=== PATIENT | female | born 1995 | race American Indian/Alaskan Native ===

== ENCOUNTER 2016-10-26 18:18 | Emergency (ER) | payer SELFPAY ==
[2016-10-26] MEDS ORDERED: Sodium Chloride 0.9% 1,000 ML IV STA (18:40)
--- NOTE | 2016-10-26 18:45 | ED PDOC ---
Arrival/HPI - General Chief Complaint: Abdominal Pain Time Seen by Provider: 10/26/16 18:25 Historian: Patient - History of Present Illness Narrative History of Present Illness (Text): The patient is a 20yo female, , presents to the emergency department for evaluation of suprapubic pain with associated bilateral lower back pain. The patient reports her symptoms have been persistent for the past couple months; additionally reports she had had irregular menstrual cycles and states her LMP ended about a week ago. Patient states she took a home test 2 weeks ago which resulted positive. She denies any urinary symptoms, nausea, vomiting, diarrhea, fever, chills, vaginal bleeding or discharge. The patient states she has had decreased appetite. She denies nay other medical complaints. Of note, pt reports her first was normal term; pt reports she had blood pressure problems during the . PCP: None OBGYN: Dr. Sandy Merino at [facility] Time/Duration: > month (3) Past Medical History - Provider Review Nursing Documentation Reviewed: Yes - Past History Past History: No Previous - Infectious Disease Hx of Infectious Diseases: None - Past Medical History Past Medical History: No Previous - Psychiatric Hx Substance Use: No - Anesthesia Hx Anesthesia: Yes Hx Anesthesia Reactions: No Family/Social History - Physician Review Nursing Documentation Reviewed: Yes Family/Social History: Unknown Family HX Smoking Status: Never Smoked Hx Alcohol Use: No Hx Substance Use: No Allergies/Home Meds Allergies/Adverse Reactions: Allergies No Known Allergies Allergy (Verified 10/26/16 18:20) Home Medications: Home Meds Medication Instructions Recorded Confirmed No Known Home Med 10/26/16 10/26/16 Review of Systems - Physician Review All systems were reviewed & negative as marked: Yes - Review of Systems Gastrointestinal: Other (Suprapubic pain) Genitourinary Female: Normal. absent: Dysuria, Frequency, Hematuria, Vaginal Bleeding, Vaginal Discharge Musculoskeletal: Back Pain (b/l lower back pain ) Physical Exam Vital Signs Pulse Resp BP Pulse Ox 10/26/16 20:26 92 H 18 123/87 100 10/26/16 18:23 87 18 122/81 100 Temperature: Afebrile Blood Pressure: Normal Pulse: Regular Respiratory Rate: Normal Appearance: Positive for: Well-Appearing, Non-Toxic, Comfortable Pain Distress: None Mental Status: Positive for: Alert and Oriented X 3 - Systems Exam Head: Present: Atraumatic, Normocephalic Mouth: Present: Moist Mucous Membranes Respiratory/Chest: Present: Clear to Auscultation, Good Air Exchange. No: Respiratory Distress, Accessory Muscle Use Cardiovascular: Present: Regular Rate and Rhythm, Normal S1, S2. No: Murmurs Abdomen: Present: Tenderness (mild suprapubic tenderness to palpation), Normal Bowel Sounds. No: Distention, Peritoneal Signs Back: Present: Normal Inspection Lower Extremity: Present: Normal Inspection. No: Edema Neurological: Present: GCS=15, CN II-XII Intact, Speech Normal Skin: Present: Warm, Dry, Normal Color. No: Rashes Psychiatric: Present: Alert, Oriented x 3, Normal Insight, Normal Concentration Medical Decision Making ED Course and Treatment: Impression: Suprapubic pain in setting of Differential Diagnosis included but are not limited to: r/o UTI, complications in Plan: -- Labs -- IV Fluids -- US Transvaginal -- Reassess and disposition Progress Notes: 10/26/16 20:16 US Transvaginal Impression: IMPRESSION: 21 week 3 day single cephalic fetus with estimated date of delivery 03/05/17 - Lab Interpretations Lab Results: 10/26/16 19:00 10/26/16 19:00 Lab Results 10/26/16 19:00: Sodium 138, Potassium 3.7, Chloride 105, Carbon Dioxide 26, Anion Gap 11, BUN 8, Creatinine 0.6, Est GFR ( Amer) > 60, Est GFR (Non- Af Amer) > 60, Random Glucose 75, Calcium 9.0, Total Bilirubin 0.3, AST 19, ALT 22, Alkaline Phosphatase 79, Total Protein 7.5, Albumin 3.6, Globulin 4.0, Albumin/Globulin Ratio 0.9 L, Lipase 32 10/26/16 19:00: Urine Color Yellow, Urine Appearance Sl cloudy, Urine pH 6.5, Ur Specific [place] 1.025, Urine Protein 30 H, Urine Glucose (UA) Negative, Urine Ketones Trace H, Urine Blood Negative, Urine Nitrate Negative, Urine Bilirubin Negative, Urine Urobilinogen 1.0 H, Ur Leukocyte Esterase Negative, Urine RBC 0 - 2, Urine WBC 0 - 2, Ur Epithelial Cells Many, Urine Bacteria Many 10/26/16 19:00: WBC 8.5, RBC 3.84, Hgb 11.3 L, Hct 33.7 L, MCV 87.8, MCH 29.4, MCHC 33.5, RDW 13.1, Plt Count 268, MPV 10.3, Gran % 71.9 H, Lymph % (Auto) 18.9 L, [place] % (Auto) 8.1 H, Eos % (Auto) 0.9 L, Baso % (Auto) 0.2, Gran # 6.09 , Lymph # 1.6, [place] # 0.7 H, Eos # 0.1, Baso # 0.02 - RAD Interpretation Radiology Orders: 10/26/16 18:41 OB , LIMITED [US] Stat - Medication Orders Current Medication Orders: Discontinued Medications Sodium Chloride (Sodium Chloride 0.9%) 1,000 mls @ 1,000 mls/hr IV .Q1H STA Stop: 10/26/16 19:39 Last Admin: 10/26/16 19:21 Dose: 1,000 mls/hr - Scribe Statement The provider has reviewed the documentation as recorded by the Real Wan Provider Scribe Attestation: All medical record entries made by the Shanonibe were at my direction and personally dictated by me. I have reviewed the chart and agree that the record accurately reflects my personal performance of the history, physical exam, medical decision making, and the department course for this patient. I have also personally directed, reviewed, and agree with the discharge instructions and disposition. Disposition/Present on Arrival - Present on Arrival Any Indicators Present on Arrival: No History of DVT/PE: No History of Uncontrolled Diabetes: No Urinary Catheter: No History of Decub. Ulcer: No History Surgical Site Infection Following: None - Disposition Have Diagnosis and Disposition been Completed?: Yes Diagnosis: and not yet delivered in second trimester Disposition: HOME/ ROUTINE Disposition Time: 20:15 Condition: GOOD Discharge Instructions (ExitCare): at 19 to 22 Weeks (ED) Additional Instructions: Thank you for letting us take care of you today. Your provider was Dr. Gilbert. You were treated for abdominal pain during . The emergency medical care you received today was directed at your acute symptoms. If you were prescribed any medication, please fill it and take as directed. It may take several days for your symptoms to resolve. Return to the Emergency Department if your symptoms worsen, do not improve, or if you have any other problems. Please contact your doctor or call one of the physicians/clinics you have been referred to that are listed on the Patient Visit Information form that is included in your discharge packet. Bring any paperwork you were given at discharge with you along with any medications you are taking to your follow up visit. Our treatment cannot replace ongoing medical care by a primary care provider (PCP) outside of the emergency department. Thank you for allowing the [facility] team to be part of your care today. Start taking vitamins and follow up with your [facility] doctor in 2 days for further evaluation and care. Referrals: PCP,NO [Primary Care Provider] - Follow up with primary
[2016-10-26 19:13] LABS: BASO # 0.02 K/mm3 (0.0-2.0); BASO % 0.2 % (0.0-3.0); EOS # 0.1 (0.0-0.7); EOS % 0.9 % (1.5-5.0); GRAN # 6.09 (1.4-6.5); GRAN % 71.9 % (50.0-68.0); HEMOGLOBIN 11.3 gm/dL (12.0-16.0); LYMPH # 1.6 (1.2-3.4); LYMPH % 18.9 % (22.0-35.0); MEAN CELL VOLUME 87.8 fL (80.0-105.0); MEAN CORPUSCULAR HEMOGLOBIN 29.4 pg (25.0-35.0); MEAN CORPUSCULAR HGB CONC 33.5 g/dl (31.0-37.0); MEAN PLATELET VOLUME 10.3 fl (7.0-11.0); MONO # 0.7 (0.1-0.6); MONO % 8.1 % (1.0-6.0); PLATELET COUNT 268 10^3/uL (120.0-450.0); RBC 3.84 10^6/uL (3.5-6.1); RED CELL DISTRIBUTION WIDTH 13.1 % (11.5-14.5); WHITE BLOOD COUNT 8.5 10^3/ul (4.5-11.0)
[2016-10-26 19:16] LABS: PH,URINE 6.5 (4.7-8.0); URINE BILIRUBIN NEGATIVE (NEGATIVE); URINE BLOOD NEGATIVE (NEGATIVE); URINE GLUCOSE (UA) NEGATIVE (NEGATIVE); URINE LEUKOCYTE ESTERASE NEGATIVE Leu/uL (NEGATIVE); URINE NITRATE NEGATIVE (NEGATIVE); URINE PROTEIN 30 mg/dL (<30 mg/dL)
[2016-10-26 19:23] LABS: ALB/GLOB RATIO 0.9 (1.1-1.8); ALBUMIN 3.6 g/dL (3.0-4.8); ALT/SGPT 22 U/L (7-56); AST/SGOT 19 U/L (15-39); BLOOD UREA NITROGEN 8 mg/dL (7-21); GFR AFRICAN-AMERICAN > 60; GFR NON-AFRICAN AMERICAN > 60; LIPASE 32 U/L (23-300)
[2016-10-26 19:30] LABS: URINE APPEARANCE SL CLOUDY (CLEAR); URINE COLOR YELLOW (YELLOW)
[2016-10-26 19:31] LABS: URINE BACTERIA MANY (NEG); URINE EPITHELIAL CELLS MANY /hpf (0-5); URINE RBC 0 - 2 /hpf (0-2); URINE WBC 0 - 2 /hpf (0-6)
[2016-10-27 12:01] VITALS: BP 123/87; PULSE 92; RESP 18; O2SAT 100; BMI 29.0
--- NOTE | 2016-10-27 12:12 | US ---
Indication: Suprapubic tenderness OB , limited ultrasound Comparison: None available Technique: Real-time ultrasound was performed through the pelvis. Findings: There is a single living fetus in cephalic presentation. Anterior placenta. The placenta is not previa. There are no adnexal masses or cysts evident. Measurements and calculations: Fetus has a composite sonographic age of 21 weeks 3 days. This calculation is based on the biparietal diameter, head circumference, abdominal circumference, and femur length. Amniotic fluid measures 12.76 cm. Estimated heart rate 159.9 beats per min. Impression: Single living fetus with a composite sonographic age of 21 weeks 3 days. Estimated heart rate 159.9 beats per min. The study was performed for the emergent evaluation of suprapubic tenderness, and the whole anatomic survey of the fetus was not performed. This should be performed on an outpatient elective basis as clinically warranted. Preliminary impression was provided by virtual radiologic.
== END 2016-10-26 20:42 | disposition home or self-care (01) ==
LOC: MERGE 18:18 → ED 18:18
DX: O26.892 Other specified pregnancy related conditions, second trimester (principal); Z3A.21 21 weeks gestation of pregnancy
CPT/HCPCS: 76815; 80053; 81001; 83690; 84702; 85025; 87086; 99284; J7040

== ENCOUNTER 2017-01-04 11:23 | Emergency (ER) | payer MEDICAID, OTHER ==
[2017-01-04 12:14] VITALS: RESP 18; TEMP 98.8; O2SAT 99; BMI 31.4
--- NOTE | 2017-01-04 12:17 | ED PDOC ---
Arrival/HPI - General Chief Complaint: Abdominal Pain Time Seen by Provider: 01/04/17 12:09 Historian: Patient, Parent (Mother) - History of Present Illness Narrative History of Present Illness (Text): 01/04/17 12:10 A 21 year old female, , presents to the emergency department with 2- day duration lower abdominal discomfort and 1 week decreased movement of the fetus. She describes the abdominal discomfort as cramping and intermittent. She states that she has been taking vitamins. The patient denies fevers, chills, nausea, vomiting, diarrhea, headache, dizziness, chest pain, shortness of breath , vaginal bleeding, or any other complaint. MICROBIOLOGY DIRECTOR: Dr. Gregg Alcaraz Time/Duration: 1 week Symptom Onset: Sudden Symptom Course: Unchanged Activities at Onset: Rest, Light Context: Home Past Medical History - Provider Review Nursing Documentation Reviewed: Yes - Past History Past History: No Previous - Infectious Disease Hx of Infectious Diseases: None - Tetanus Immunization Tetanus Immunization: Unknown - Past Medical History Past Medical History: No Previous - Cardiac Hx Hypertension: Yes - Psychiatric Hx Substance Use: No - Anesthesia Hx Anesthesia: Yes Hx Anesthesia Reactions: No Family/Social History - Physician Review Nursing Documentation Reviewed: Yes Family/Social History: No Known Family HX Smoking Status: Never Smoked Hx Alcohol Use: No Hx Substance Use: No Allergies/Home Meds Allergies/Adverse Reactions: Allergies No Known Allergies Allergy (Verified 04/13/15 16:09) Home Medications: Home Meds Medication Instructions Recorded Confirmed Vit 75/Iron/Folic/Om3 1 tab PO DAILY 01/04/17 01/04/17 [One A Day Dha Pack] Review of Systems - Physician Review All systems were reviewed & negative as marked: Yes - Review of Systems Constitutional: absent: Fevers, Night Sweats ENT: absent: Sore Throat Respiratory: absent: SOB, Cough Cardiovascular: absent: Chest Pain Gastrointestinal: Abdominal Pain (2- day duration lower abdominal discomfort: intermittent cramping.). absent: Diarrhea, Nausea, Vomiting Genitourinary Female: Other (Decreased movement). absent: Vaginal Bleeding Musculoskeletal: absent: Back Pain, Neck Pain Neurological: absent: Headache, Dizziness Physical Exam - Physical Exam Narrative Physical Exam (Text): 01/04/17 12:19 Constitutional: No acute distress. Head: Normocephalic. Atraumatic. Eyes: PERRL. ENT: Moist mucous membranes. Neck: Supple. Cardiovascular: Regular rate. Chest: No tenderness. Respiratory: Clear to auscultation bilaterally. GI: Soft. Nontender. Nondistended. Gravid Uterus. Back: No CVA tenderness. Musculoskeletal: No tenderness or swelling of extremities. Skin: No rash. Neurologic: Alert, no focal deficit. Vital Signs Reviewed: Yes Vital Signs Temp Pulse Resp BP Pulse Ox 01/04/17 15:00 79 18 128/75 99 01/04/17 12:48 86 18 132/79 99 01/04/17 11:47 98.8 F 98 H 18 135/86 99 Temperature: Afebrile Blood Pressure: Normal Pulse: Tachycardic Respiratory Rate: Normal Appearance: Positive for: Well-Appearing, Non-Toxic, Comfortable Pain Distress: None Mental Status: Positive for: Alert and Oriented X 3 Medical Decision Making ED Course and Treatment: 01/04/17 12:19 Impression: A 21 year old female, 31 weeks , presents with lower abdominal pain and decreased movement. Plan: -- US -- Urine Culture -- Urinalysis -- Reassess and disposition Prior Visits: Notes and results from previous visits were reviewed. Patient was last seen in the emergency department on 10/26/16 suprapubic pain with associated bilateral lower back pain. Progress Notes: OB Pelvic Ultrasound Dictator : Monica Brooks MD Report Date : 01/04/2017 15:13:38 IMPRESSION: Single live intrauterine fetus in cephalic presentation with estimated gestational age of 31 weeks and 6 days. The estimated date of delivery by ultrasound is 03/02/2017. The ultrasound dates correspond with the clinical dates. Placenta is anterior. Amniotic fluid is adequate. Internal os is closed. Please note this is an MR joint obstetric ultrasound performed in the emergency room. A dedicated follow-up survey is advised. UA negative. US shows movement and normal FHR. I advised patient to pursue obstetric care, vitamins. - Lab Interpretations Lab Results: Lab Results 01/04/17 12:33: Urine Color Yellow, Urine Appearance Sl cloudy, Urine pH 6.5, Ur Specific [place] 1.025, Urine Protein 30 H, Urine Glucose (UA) 100 H, Urine Ketones Trace H, Urine Blood Negative, Urine Nitrate Negative, Urine Bilirubin Negative, Urine Urobilinogen 2.0 H, Ur Leukocyte Esterase Negative, Urine RBC 0 - 2, Urine WBC 0 - 2, Ur Epithelial Cells 6 - 8, Urine Bacteria Mod, Urine HCG, Qual Positive - RAD Interpretation Radiology Orders: 01/04/17 12:10 AGE [US] Stat - Scribe Statement The provider has reviewed the documentation as recorded by the Scribe Stephenie Levi Provider Scribe Attestation: All medical record entries made by the Scribe were at my direction and personally dictated by me. I have reviewed the chart and agree that the record accurately reflects my personal performance of the history, physical exam, medical decision making, and the department course for this patient. I have also personally directed, reviewed, and agree with the discharge instructions and disposition. Disposition/Present on Arrival - Present on Arrival Any Indicators Present on Arrival: No History of DVT/PE: No History of Uncontrolled Diabetes: No Urinary Catheter: No History of Decub. Ulcer: No History Surgical Site Infection Following: None - Disposition Have Diagnosis and Disposition been Completed?: Yes Diagnosis: Disposition: HOME/ ROUTINE Disposition Time: 14:13 Patient Plan: Discharge Condition: STABLE Discharge Instructions (ExitCare): (ED) Referrals: PCP,NO [Primary Care Provider] - Follow up with primary Forms: [employer] (Pakistani)
[2017-01-04 12:40] LABS: PH,URINE 6.5 (4.7-8.0); URINE BILIRUBIN NEGATIVE (NEGATIVE); URINE BLOOD NEGATIVE (NEGATIVE); URINE GLUCOSE (UA) 100 mg/dL (NEGATIVE); URINE KETONE TRACE mg/dL (NEGATIVE); URINE LEUKOCYTE ESTERASE NEGATIVE Leu/uL (NEGATIVE); URINE PROTEIN 30 mg/dL (<30 mg/dL)
[2017-01-04 12:47] LABS: URINE APPEARANCE SL CLOUDY (CLEAR); URINE COLOR YELLOW (YELLOW)
[2017-01-04 13:04] LABS: URINE BACTERIA MOD (NEG); URINE RBC 0 - 2 /hpf (0-2); URINE WBC 0 - 2 /hpf (0-6)
--- NOTE | 2017-01-04 15:15 | US ---
PROCEDURE: OB Pelvic Ultrasound HISTORY: confirm IUP, movement, FHR COMPARISON: None available. FINDINGS: UTERUS: Single Live intrauterine fetus in cephalic presentation. BPD: 7.8 cm corresponding to 31 weeks and 3 days of gestational age. HC: 28.7 cm corresponding to 31 weeks and 5 days of gestational age. AC: 27.8 cm corresponding to 32 weeks and 0 days of gestational age. FL: 6.2 cm corresponding to 32 weeks and 1 day of gestational age with age (Ultrasound estimated): 31 wks/ 6 days gestatioin Date of delivery (Ultrasound estimated) : 03/02/2017 Heart rate: 04/15/2025 bpm. Nasreen-gestational hemorrhage: None. Placenta is anterior. CERVIX: Long and closed. No cervical abnormality seen. RIGHT OVARY: Not visualized. LEFT OVARY: Not visualized. FREE FLUID: None. OTHER FINDINGS: None. IMPRESSION: Single live intrauterine fetus in cephalic presentation with estimated gestational age of 31 weeks and 6 days. The estimated date of delivery by ultrasound is 03/02/2017. The ultrasound dates correspond with the clinical dates. Placenta is anterior. Amniotic fluid is adequate. Internal os is closed. Please note this is an MR joint obstetric ultrasound performed in the emergency room. A dedicated follow-up survey is advised.
[2017-01-04 15:33] VITALS: BP 128/75; PULSE 79
== END 2017-01-04 15:51 | disposition home or self-care (01) ==
LOC: ED 11:23
DX: O26.893 Other specified pregnancy related conditions, third trimester (principal); Z3A.31 31 weeks gestation of pregnancy